=== PATIENT | female | born 1975 | race Caucasian/White ===

== ENCOUNTER 2016-08-01 11:12 | Inpatient (IN) | payer OTHER ==
[2016-08-01 13:09] VITALS: BMI 33.6
--- NOTE | 2016-08-01 13:36 | HP ---
CIWA Score - CIWA Score Nausea/Vomitin Muscle Tremors: 3 Anxiety: 3 Agitation: 3 Paroxysmal Sweats: 2 Orientation: 0-Oriented Tacttile Disturbances: 2-Mild Itch/Numbness/Burn Auditory Disturbances: 2-Mild Harshness/Frighten Visual Disturbances: 2-Mild Sensitivity Headache: 2-Mild CIWA-Ar Total Score: 22 Admission ROS [facility]HS - HPI Chief Complaint: i need help to stop drinking alcohol,xanax and heroin dependence,withdrawal symptom,last detox [facility] in 07/07seizure last 1 month sgo syncope history of pancreatitis bipolar disorder nicotine dependence low back pain arthritis fracture of right wrist in 2010 longest period of sobriety 2 years Allergies/Adverse Reactions: Allergies Allergy/AdvReac Type Severity Reaction Status Date / Time acetaminophen [From Tylenol] Allergy Severe Rash Verified 08/01/16 13:12 History of Present Illness: this 41 years old female with alcohol,xanax dependence,heroin dependence, seeking detox seeking help to stop using heroin and alcohol and xanax Exam Limitations: No Limitations - Ebola screening Have you traveled outside of the country in the last 21 days: No Have you had contact with anyone from an Ebola affected area: No Have you been sick,other than usual withdrawal symptoms: No Do you have a fever: No - Review of Systems Constitutional: Loss of Appetite, Malaise, Night Sweats, Changes in sleep, Weakness EENT: reports: Nose Congestion Respiratory: reports: No Symptoms reported Cardiac: reports: No Symptoms Reported GI: reports: Diarrhea, Nausea, Vomiting, Abdominal cramping : reports: No Symptoms Reported Musculoskeletal: reports: Back Pain, Muscle Pain Integumentary: reports: Dryness Neuro: reports: Headache, Tremors Endocrine: reports: No Symptoms Reported Hematology: reports: No Symptoms Reported Psychiatric: reports: Depressed Patient History - Patient Medical History Hx Anemia: No Hx Asthma: No Hx Chronic Obstructive Pulmonary Disease (COPD): No Hx Cancer: No Hx Cardiac Disorders: No Hx Congestive Heart Failure: No Hx Hypertension: No Hx Hypercholesterolemia: No Hx Pacemaker: No HX Cerebrovascular Accident: No Hx Seizures: Yes (last 1 month) Hx Dementia: No Hx Diabetes: No Hx Gastrointestinal Disorders: No Hx Liver Disease: No Hx Genitourinary Disorders: No Hx Sexually Transmitted Disorders: No Hx Renal Disease (ESRD): No Hx Thyroid Disease: No Hx Human Immunodeficiency Virus (HIV): No (last 03/05 negative) Hx Hepatitis C: No Hx Depression: Yes Hx Suicide Attempt: Yes ([place]) Hx Bipolar Disorder: No Hx Schizophrenia: No Other Medical History: no suicidal,no homicidal - Patient Surgical History Past Surgical History: No Hx Breast Surgery: Yes (breast augmentation in 1998) Other Surgical History: abscess of left neck in 1994,upper endosopy at age of 25 - PPD History Previous Implant?: Yes Documented Results: Negative w/o proof Implanted On Prior [facility] Admission?: No PPD to be Administered?: Yes - Reproductive History Patient is a Female of Child Bearing Age (11 -55 yrs old): Yes Patient : No - Smoking Cessation Smoking history: Current every day smoker Have you smoked in the past 12 months: Yes Aproximately how many cigarettes per day: 10 Cigars Per Day: 0 Hx Chewing Tobacco Use: No Initiated information on smoking cessation: Yes 'Breaking Loose' booklet given: 08/01/16 - Substance & Tx. History Hx Alcohol Use: Yes Hx Substance Use: Yes Substance Use Type: Alcohol, Heroin, Tranquilizers Hx Substance Use Treatment: Yes ([facility] 07/07) Family Disease History - Family Disease History Family History: Denies Admission Physical Exam S - Vital Signs Vital Signs: Vital Signs - 24 hr 08/01/16 13:07 Temperature 96.4 F L Pulse Rate 77 Respiratory 20 Rate Blood Pressure 144/93 - Physical General Appearance: Yes: Moderate Distress, Tremorous, Irritable, Sweating, Anxious HEENTM: Yes: Normocephalic, TIFF, Pharynx Normal Respiratory: Yes: Lungs Clear, Normal Breath Sounds, No Respiratory Distress Neck: Yes: Supple, Trachea in good position Breast: Yes: Breast Exam Deferred Cardiology: Yes: Within Normal Limits, Regular Rhythm, Regular Rate, S1, S2 Abdominal: Yes: Within Normal Limits, Normal Bowel Sounds, Non Tender, Flat, Soft Genitourinary: Yes: Within Normal Limits Back: Yes: Muscle Spasm Musculoskeletal: Yes: Back pain, Muscle Pain Extremities: Yes: Tremors 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, Fully Oriented, Alert, Motor Strength 5/5 Integumentary: Yes: Dry Lymphatic: Yes: Within Normal Limits - Diagnostic (1) Alcohol dependence with uncomplicated withdrawal Current Visit: Yes Status: Acute (2) Uncomplicated sedative, hypnotic or anxiolytic withdrawal Current Visit: Yes Status: Acute (3) Opioid dependence Current Visit: Yes Status: Acute (4) Bipolar disorder Current Visit: Yes Status: Acute (5) Depression Current Visit: Yes Status: Acute (6) Seizure Current Visit: Yes Status: Acute (7) Syncope Current Visit: Yes Status: Acute (8) History of pancreatitis Current Visit: Yes Status: Acute (9) Nicotine dependence Current Visit: Yes Status: Acute Cleared for Admission [facility] - Detox or Rehab [facility] Level of Care: Medically Managed Detox Regimen/Protocol: Valium (urine for drug screening is negative) [facility] Breath Alcohol Content Breath Alcohol Content: 0.045 Urine Pregancy Test - Result Urine Test Results: Negative- NO Line Present Urine Drug Screen - Results Drug Screen Negative: Yes
[2016-08-01] MEDS ORDERED: MAGNESIUM CITRATE 300 ML BOTTLE PO PRN (14:03)
[2016-08-01] MEDS ORDERED: guaiFENesin/D-METHORPHAN HB 10 ML UNIT-DOSE CUPS PO PRN (14:03)
[2016-08-01] MEDS ORDERED: IBUPROFEN 400 MG TABLET (FP) PO PRN (14:03)
[2016-08-01] MEDS ORDERED: MENTHOL/PHENOL 1 EACH UD MM PRN (14:03)
[2016-08-01] MEDS ORDERED: diphenhydrAMINE HCL 50 MG CAPSULE PO PRN (14:03)
[2016-08-01] MEDS ORDERED: MAGNESIUM HYDROX 2400MG/30ML ORAL SUSPENSION 30 ML CUP PO PRN (14:03)
[2016-08-01] MEDS ORDERED: P-EPHED 60MG/TRIPROLIDI 2.5MG TABLET PO PRN (14:03)
[2016-08-01] MEDS ORDERED: MAG HYDROX/AL HYDROX/SIMETH 30 ML UNIT-DOSE CUP PO PRN (14:03)
[2016-08-01] MEDS ORDERED: diazePAM 5 MG TABLET PO ONE (14:34)
[2016-08-01] MEDS: NICOTINE 21 MG/24 HOURS TOPICAL PATCH TD SCH (15:26)
[2016-08-01 21:45] LABS: URINE APPEARANCE CLEAR; URINE BILIRUBIN NEGATIVE (NEGATIVE); URINE BLOOD NEGATIVE (NEGATIVE); URINE COLOR YELLOW; URINE GLUCOSE (UA) NEGATIVE (NEGATIVE); URINE KETONE NEGATIVE (NEGATIVE); URINE NITRITE NEGATIVE (NEGATIVE); URINE PROTEIN NEGATIVE (NEGATIVE); URINE UROBILINOGEN NEGATIVE E.U./dl (0.2-1.0)
[2016-08-01 21:46] LABS: URINE LEUK ESTERASE TRACE (NEGATIVE)
[2016-08-01 21:48] LABS: URINE BACTERIA RARE /hpf (NONE SEEN); URINE HYALINE CAST 2 /lpf; URINE MUCUS MANY; URINE RBC 1 /hpf (0-3); URINE WBC 1 /hpf (3-5)
[2016-08-01] MEDS: diazePAM 5 MG TABLET PO SCH (22:41)
[2016-08-01] MEDS: THIAMINE HCL 100 MG TABLET (FP) PO SCH (22:41)
[2016-08-02] MEDS: diazePAM 5 MG TABLET PO SCH ×3 (06:45→22:41)
--- NOTE | 2016-08-02 08:52 | CONSULT ---
[facility] Psychiatric Consult - Data Date of interview: 08/02/16 Admission source: [facility] Identifying data: This is 41 years old female , chromic alcoholic, intoxicated with Alcohol and Opioids, Xanax and Nicotine, with history of psychiatric hospitalizations Substance Abuse History: - Smoking Cessation. Smoking history: Current every day smoker. Have you smoked in the past 12 months: Yes. Aproximately how many cigarettes per day: 10. Cigars Per Day: 0. Hx Chewing Tobacco Use: No. Initiated information on smoking cessation: Yes. 'Breaking Loose' booklet given : 08/01/16. - Substance & Tx. History. Hx Alcohol Use: Yes. Hx Substance Use : Yes. Substance Use Type: Alcohol, Heroin, Tranquilizers. Hx Substance Use Treatment: Yes ([facility] 07/07) Medical History: Chronic Pancreatitis, Seizure history, Syncope history Psychiatric History: Patient reports to carry Bipolar disorder with recent psychiatric admission at [facility] on [facility] for safety. Patient reports taking prior rhona admission: Buspar 5mg po bid. Trazodone 200mg pom qhs. Prozac 60mg poqd. Gabapentin 300mg po tid Physical/Sexual Abuse/Trauma History: Denies Additional Comment: Buspar 5mg po bid. Trazodone 200mg pom qhs. Prozac 60mg poqd. Gabapentin 300mg po tid Mental Status Exam - Mental Status Exam Alert and Oriented to: Person Cognitive Function: Fair Patient Appearance: Unkempt Mood: Sad Affect: Flat Patient Behavior: Sedated Speech Pattern: Delayed, Slurred Voice Loudness: Mildly Soft/Quiet Thought Process: Circumstantial Thought Disorder: Being Controlled Hallucinations: Denies Suicidal Ideation: Denies Homicidal Ideation: Denies Insight/Judgement: Fair Sleep: Difficulty falling asleep Appetite: Weight loss Muscle strength/Tone: Mild Hypotonicity Gait/Station: Shuffling Additional Comments: Buspar 5mg po bid. Trazodone 200mg pom qhs. Prozac 60mg poqd. Gabapentin 300mg po tid Psychiatric Findings - Problem List ([place] 1, 2,3) (1) Alcohol dependence with uncomplicated withdrawal Current Visit: Yes Status: Acute (2) Bipolar disorder Current Visit: Yes Status: Acute (3) Nicotine dependence Current Visit: Yes Status: Acute (4) Opioid dependence Current Visit: Yes Status: Acute (5) Uncomplicated sedative, hypnotic or anxiolytic withdrawal Current Visit: Yes Status: Acute - Initial Treatment Plan Initial Treatment Plan: Buspar 5mg po bid. Trazodone 200mg pom qhs. Prozac 60mg poqd. Gabapentin 300mg po tid
[2016-08-02 10:34] LABS: MCHC 32.8 g/dl (32.0-36.0); MEAN CELL VOLUME 88.3 fl (80-96); MEAN PLT VOLUME 9.8 fl (7.5-11.1); PLATELET COUNT 213 K/MM3 (134-434); RDW 15.4 % (11.6-15.6); WHITE BLOOD COUNT 4.2 K/mm3 (4.0-10.0)
[2016-08-02] MEDS: PRENATAL VITAMINS W/ FOLIC ACID TABLET (FP) PO SCH (10:51)
[2016-08-02] MEDS: diazePAM 5 MG TABLET PO PRN ×2 (10:51→18:17)
[2016-08-02] MEDS: FLUoxetine HCL 20 MG CAPSULE (FP) PO SCH (10:51)
[2016-08-02] MEDS: busPIRone HCL 5 MG TABLET PO SCH ×2 (10:52→22:41)
[2016-08-02] MEDS: NICOTINE 21 MG/24 HOURS TOPICAL PATCH TD SCH (10:52)
[2016-08-02 11:03] LABS: ALBUMIN 2.9 g/dl (3.4-5.0); ALK PHOS 67 U/L (45-117); ANION GAP 8 (8-16); BILIRUBIN,TOTAL 0.2 mg/dL (0.2-1.0); CALCIUM 8.3 mg/dL (8.5-10.1); CO2 28 mmol/L (21-32); CREATININE 0.5 mg/dL (0.55-1.02); GLUCOSE,RANDOM 102 mg/dL (74-106); SGOT/AST 45 U/L (15-37); SGPT/ALT 43 U/L (12-78); TOT PROT 6.4 g/dl (6.4-8.2)
[2016-08-02] MEDS ORDERED: POTASSIUM CHLORIDE TABS 20 MEQ TABLET.ER (FP) PO ONE (11:55)
--- NOTE | 2016-08-02 11:59 | PN ---
S CIWA - CIWA Score Nausea/Vomitin-Int. Nausea w/Dry Heave Muscle Tremors: 3 Anxiety: 3 Agitation: 3 Paroxysmal Sweats: 3 Orientation: 0-Oriented Tacttile Disturbances: 2-Mild Itch/Numbness/Burn Auditory Disturbances: 0-None Visual Disturbances: 0-None Headache: 0-None Present CIWA-Ar Total Score: 18 BHS Progress Note (SOAP) Subjective: interrupted sleep, sweats, shakes , nausea, decreased appetite , diarrhea Objective: 08/02/16 11:58 Vital Signs Temperature 97.6 F 08/02/16 10:05 Pulse Rate 82 08/02/16 10:05 Respiratory Rate 18 08/02/16 10:05 Blood Pressure 159/93 08/02/16 10:05 O2 Sat by Pulse Oximetry (%) Laboratory Tests 08/01/16 08/02/16 08/02/16 21:00 07:00 07:00 WBC 4.2 RBC 3.57 L Hgb 10.3 L Hct 31.5 L MCV 88.3 MCHC 32.8 RDW 15.4 Plt Count 213 MPV 9.8 Sodium 140 Potassium 3.4 L Chloride 104 Carbon Dioxide 28 Anion Gap 8 BUN 7 Creatinine 0.5 L Creat Clearance w eGFR > 60 Random Glucose 102 Calcium 8.3 L Total Bilirubin 0.2 AST 45 H ALT 43 Alkaline Phosphatase 67 Total Protein 6.4 Albumin 2.9 L Urine Color Yellow Urine Appearance Clear Urine pH 5.0 Ur Specific [place] 1.011 Urine Protein Negative Urine Glucose (UA) Negative Urine Ketones Negative Urine Blood Negative Urine Nitrite Negative Urine Bilirubin Negative Urine Urobilinogen Negative Ur Leukocyte Esterase Trace H Urine RBC 1 Urine WBC 1 Ur Epithelial Cells Few Urine Bacteria Rare Hyaline Casts 2 Urine Mucus Many pt aox3 in nad ambulating Assessment: 08/02/16 11:58 withdrawal sx's Plan: cont. detox increase fluids imodium prn
[2016-08-02 12:07] LABS: HIV 1 & 2 AB NEGATIVE; HIV 1 AGp24 NEGATIVE
[2016-08-02] MEDS: GABAPENTIN 300 MG CAPSULE (FP) PO SCH ×2 (15:08→22:42)
[2016-08-02] MEDS: traZODone HCL 100 MG TABLET (FP) PO SCH (22:41)
[2016-08-02] MEDS: THIAMINE HCL 100 MG TABLET (FP) PO SCH (22:43)
[2016-08-03] MEDS: GABAPENTIN 300 MG CAPSULE (FP) PO SCH ×3 (06:29→22:46)
[2016-08-03] MEDS: NICOTINE 21 MG/24 HOURS TOPICAL PATCH TD SCH (10:37)
[2016-08-03] MEDS: PRENATAL VITAMINS W/ FOLIC ACID TABLET (FP) PO SCH (10:37)
[2016-08-03] MEDS: diazePAM 5 MG TABLET PO SCH ×2 (10:37→22:46)
[2016-08-03] MEDS: FLUoxetine HCL 20 MG CAPSULE (FP) PO SCH (10:37)
[2016-08-03] MEDS: busPIRone HCL 5 MG TABLET PO SCH ×2 (10:38→22:46)
[2016-08-03] MEDS: hydrOXYzine PAMOATE 50 MG CAPSULE (FP) PO PRN (10:41)
[2016-08-03] MEDS: POTASSIUM CHLORIDE TABS 20 MEQ TABLET.ER (FP) PO SCH (10:43)
--- NOTE | 2016-08-03 11:46 | PN ---
[facility] CIWA - CIWA Score Nausea/Vomitin-No Nausea/No Vomiting Muscle Tremors: 4-Moderate,w/Arms Extend Anxiety: 3 Agitation: 4-Moderately Restless Paroxysmal Sweats: 3 Orientation: 0-Oriented Tacttile Disturbances: 0-None Auditory Disturbances: 0-None Visual Disturbances: 0-None Headache: 1-Very Mild CIWA-Ar Total Score: 15 BHS Progress Note (SOAP) Subjective: agitation anxiety sweats headache Objective: 08/03/16 11:46 Vital Signs Temperature 98.1 F 08/03/16 09:51 Pulse Rate 95 H 08/03/16 09:51 Respiratory Rate 18 08/03/16 09:51 Blood Pressure 120/70 08/03/16 09:51 O2 Sat by Pulse Oximetry (%) Laboratory Tests 08/01/16 08/01/16 08/01/16 07:00 07:00 21:00 WBC RBC Hgb Hct MCV MCHC RDW Plt Count MPV Sodium Potassium Chloride Carbon Dioxide Anion Gap BUN Creatinine Creat Clearance w eGFR Random Glucose Calcium Total Bilirubin AST ALT Alkaline Phosphatase Total Protein Albumin Urine Color Yellow Urine Appearance Clear Urine pH 5.0 Ur Specific [place] 1.011 Urine Protein Negative Urine Glucose (UA) Negative Urine Ketones Negative Urine Blood Negative Urine Nitrite Negative Urine Bilirubin Negative Urine Urobilinogen Negative Ur Leukocyte Esterase Trace H Urine RBC 1 Urine WBC 1 Ur Epithelial Cells Few Urine Bacteria Rare Hyaline Casts 2 Urine Mucus Many RPR Titer Hepatitis C Antibody >11.0 H HIV 1&2 Antibody Screen Negative HIV P24 Antigen Negative 08/02/16 08/02/16 08/02/16 07:00 07:00 07:00 WBC 4.2 RBC 3.57 L Hgb 10.3 L Hct 31.5 L MCV 88.3 MCHC 32.8 RDW 15.4 Plt Count 213 MPV 9.8 Sodium 140 Potassium 3.4 L Chloride 104 Carbon Dioxide 28 Anion Gap 8 BUN 7 Creatinine 0.5 L Creat Clearance w eGFR > 60 Random Glucose 102 Calcium 8.3 L Total Bilirubin 0.2 AST 45 H ALT 43 Alkaline Phosphatase 67 Total Protein 6.4 Albumin 2.9 L Urine Color Urine Appearance Urine pH Ur Specific [place] Urine Protein Urine Glucose (UA) Urine Ketones Urine Blood Urine Nitrite Urine Bilirubin Urine Urobilinogen Ur Leukocyte Esterase Urine RBC Urine WBC Ur Epithelial Cells Urine Bacteria Hyaline Casts Urine Mucus RPR Titer Nonreactive Hepatitis C Antibody HIV 1&2 Antibody Screen HIV P24 Antigen awake/alert ambulating no acute distress Assessment: 08/03/16 11:46 withdrawal sx Plan: continue detox increase fluids
--- NOTE | 2016-08-03 11:48 | PN ---
BHS Progress Note Note: pt states she has bee Hep C for years and will see PMD for follow up on treatment
[2016-08-03] MEDS: diazePAM 5 MG TABLET PO PRN ×2 (14:11→19:38)
--- NOTE | 2016-08-03 15:25 | EKG ---
Test Reason : Blood Pressure : / mmHG Vent. Rate : 081 BPM Atrial Rate : 081 BPM P-R Int : 180 ms QRS Dur : 086 ms QT Int : 400 ms P-R-T Axes : 062 052 042 degrees QTc Int : 464 ms NORMAL SINUS RHYTHM LOW VOLTAGE QRS BORDERLINE ECG NO PREVIOUS ECGS AVAILABLE Confirmed by ROCIO GARAY, ARMANDO ([id number]) on 08/03/2016 3:25:15 PM Referred By: Confirmed By:ARMANDO CHAN MD
[2016-08-03] MEDS: traZODone HCL 100 MG TABLET (FP) PO SCH (22:46)
[2016-08-03] MEDS: THIAMINE HCL 100 MG TABLET (FP) PO SCH (22:46)
[2016-08-04] MEDS: GABAPENTIN 300 MG CAPSULE (FP) PO SCH ×3 (07:50→22:47)
[2016-08-04] MEDS: diazePAM 5 MG TABLET PO PRN ×2 (07:52→13:26)
--- NOTE | 2016-08-04 09:57 | PN ---
S Progress Note (SOAP) Subjective: ALERT,IRRITABLE,ANXIOUS,INTERRUPTED SLEEP Objective: 08/04/16 09:56 Vital Signs Temperature 97.7 F 08/04/16 06:00 Pulse Rate 74 08/04/16 06:00 Respiratory Rate 16 08/04/16 06:00 Blood Pressure 108/59 08/04/16 06:00 O2 Sat by Pulse Oximetry (%) Assessment: 08/04/16 09:56 WITHDRWAL SYMPTOM Plan: CONTINUE DETOX
[2016-08-04] MEDS: PRENATAL VITAMINS W/ FOLIC ACID TABLET (FP) PO SCH (10:42)
[2016-08-04] MEDS: FLUoxetine HCL 20 MG CAPSULE (FP) PO SCH (10:42)
[2016-08-04] MEDS: NICOTINE 21 MG/24 HOURS TOPICAL PATCH TD SCH (10:43)
[2016-08-04] MEDS: POTASSIUM CHLORIDE TABS 20 MEQ TABLET.ER (FP) PO SCH (10:43)
[2016-08-04] MEDS: busPIRone HCL 5 MG TABLET PO SCH ×2 (10:43→22:46)
[2016-08-04] MEDS: diazePAM 5 MG TABLET PO SCH ×2 (10:43→22:46)
[2016-08-04] MEDS: hydrOXYzine PAMOATE 50 MG CAPSULE (FP) PO PRN ×2 (10:45→14:39)
[2016-08-04] MEDS: traZODone HCL 100 MG TABLET (FP) PO SCH (22:46)
[2016-08-04] MEDS: LOPERAMIDE HCL 2 MG CAPSULE PO PRN (22:46)
[2016-08-04] MEDS: THIAMINE HCL 100 MG TABLET (FP) PO SCH (22:47)
[2016-08-05] MEDS: GABAPENTIN 300 MG CAPSULE (FP) PO SCH ×3 (07:00→22:54)
[2016-08-05] MEDS ORDERED: diazePAM 5 MG TABLET PO SCH (10:00)
[2016-08-05] MEDS: PRENATAL VITAMINS W/ FOLIC ACID TABLET (FP) PO SCH (11:24)
[2016-08-05] MEDS: NICOTINE 21 MG/24 HOURS TOPICAL PATCH TD SCH (11:24)
[2016-08-05] MEDS: FLUoxetine HCL 20 MG CAPSULE (FP) PO SCH (11:24)
[2016-08-05] MEDS: LOPERAMIDE HCL 2 MG CAPSULE PO PRN ×2 (11:25→22:55)
[2016-08-05] MEDS: busPIRone HCL 5 MG TABLET PO SCH ×2 (11:25→22:54)
--- NOTE | 2016-08-05 12:03 | PN ---
S Progress Note (SOAP) Subjective: ALERT,IRRITABLE,NAUSEA,VOMITING,LOOSE BOWEL MOVEMENT Objective: 08/05/16 12:02 Vital Signs Temperature 98.8 F 08/05/16 10:34 Pulse Rate 124 H 08/05/16 10:34 Respiratory Rate 20 08/05/16 10:34 Blood Pressure 131/80 08/05/16 10:34 O2 Sat by Pulse Oximetry (%) Assessment: 08/05/16 12:02 WITHDRAWAL SYMPTOM Plan: CONTINUE DETOX
[2016-08-05] MEDS: ONDANSETRON *ODT* 4 MG TABLET SL PRN (12:13)
[2016-08-05] MEDS: THIAMINE HCL 100 MG TABLET (FP) PO SCH (22:54)
[2016-08-05] MEDS: traZODone HCL 100 MG TABLET (FP) PO SCH (22:54)
[2016-08-06] MEDS: GABAPENTIN 300 MG CAPSULE (FP) PO SCH (05:40)
[2016-08-06 07:28] VITALS: BP 107/72; PULSE 95; TEMP 97.9
--- NOTE | 2016-08-06 09:58 | PN ---
S Progress Note (SOAP) Subjective: ALERT,NO COMPLAINT Objective: 08/06/16 09:56 Vital Signs Temperature 97.9 F 08/06/16 07:27 Pulse Rate 95 H 08/06/16 07:27 Respiratory Rate 20 08/06/16 07:27 Blood Pressure 107/72 08/06/16 07:27 O2 Sat by Pulse Oximetry (%) Assessment: 08/06/16 09:56 DETOX COMPLETED,NO WITHDRAWAL SYMPTOM Plan: DISCHARGE TODAY,FOLLOW UP WITH AFTER CARE PROGRAM ARRANGEMENT
--- NOTE | 2016-08-06 09:59 | DS ---
[facility] Detox Discharge Summary Admission Date: 08/01/16 Discharge Date: 08/06/16 - History Present History: Alcohol Dependence, Opioid Dependence, Sedative Dependence Additional Comments: FOLLOW UP WITH AFTER CARE PROGRAM ARRANGEMENT Pertinent Past History: PANCREATITIS - Physical Exam Results Vital Signs: Vital Signs Temperature 97.9 F 08/06/16 07:27 Pulse Rate 95 H 08/06/16 07:27 Respiratory Rate 20 08/06/16 07:27 Blood Pressure 107/72 08/06/16 07:27 O2 Sat by Pulse Oximetry (%) Pertinent Admission Physical Exam Findings: WITHDRAWAL SYMPTOM - Treatment Hospital Course: Detox Protocol Followed, Detoxed Safely, Responded well, Discharged Condition Good, Rehab Referral Accepted Patient has Accepted a Rehab Referral to: [facility] - Medication Discharge Medications: Ambulatory Orders Buspirone HCl [Buspar -] 2.5 mg PO BID 08/01/16 Fluoxetine HCl [Prozac -] 20 mg PO DAILY 08/01/16 Gabapentin [Neurontin -] 300 mg PO Q8H 08/01/16 Trazodone HCl [Desyrel -] 100 mg PO HS 08/01/16 Buspirone HCl [Buspar -] 5 mg PO BID #60 tablet 08/02/16 Fluoxetine HCl [Prozac -] 30 mg PO DAILY #90 tablet 08/02/16 Fluoxetine HCl [Prozac -] 60 mg PO DAILY #30 08/02/16 Gabapentin [Gralise] 300 mg PO TID #90 tab.er.24h 08/02/16 Gabapentin [Neurontin -] 300 mg PO TID #90 08/02/16 Trazodone HCl [Desyrel -] 200 mg PO HS #30 tablet 08/02/16 - Diagnosis (1) Alcohol dependence with uncomplicated withdrawal Current Visit: Yes Status: Acute (2) Uncomplicated sedative, hypnotic or anxiolytic withdrawal Current Visit: Yes Status: Acute (3) Opioid dependence Current Visit: Yes Status: Acute (4) Bipolar disorder Current Visit: Yes Status: Acute (5) Depression Current Visit: Yes Status: Acute (6) Seizure Current Visit: Yes Status: Acute (7) Syncope Current Visit: Yes Status: Acute (8) History of pancreatitis Current Visit: Yes Status: Acute (9) Nicotine dependence Current Visit: Yes Status: Acute - AMA Did Patient Leave Against Medical Advice: No
[2016-08-06] MEDS: FLUoxetine HCL 20 MG CAPSULE (FP) PO SCH (10:05)
[2016-08-06] MEDS: busPIRone HCL 5 MG TABLET PO SCH (10:06)
[2016-08-06] MEDS: PRENATAL VITAMINS W/ FOLIC ACID TABLET (FP) PO SCH (10:06)
[2016-08-06] MEDS: NICOTINE 21 MG/24 HOURS TOPICAL PATCH TD SCH (10:06)
[2016-08-06] MEDS: LOPERAMIDE HCL 2 MG CAPSULE PO PRN (10:07)
[2016-08-06] MEDS: ONDANSETRON *ODT* 4 MG TABLET SL PRN (10:07)
[2016-08-07 14:12] LABS: HCV LOG 10 6.334 (.)
== END 2016-08-06 10:33 | disposition home or self-care (01) | DRG 773 ==
LOC: YASAS 11:12 → Y6N 14:21
PROVIDERS: ADMIT Internal Medicine Addiction Medicine; ATTEND Internal Medicine Addiction Medicine
PROC: HZ2ZZZZ Detoxification Services for Substance Abuse Treatment (ICD-10-PCS; principal; 2016-08-01)
DX: F11.23 Opioid dependence with withdrawal (principal); F13.230 Sedative, hypnotic or anxiolytic dependence with withdrawal, uncomplicated; F10.230 Alcohol dependence with withdrawal, uncomplicated; F17.210 Nicotine dependence, cigarettes, uncomplicated; F31.9 Bipolar disorder, unspecified; F32.9 Major depressive disorder, single episode, unspecified; G40.909 Epilepsy, unspecified, not intractable, without status epilepticus; M54.5 Low back pain; Z87.19 Personal history of other diseases of the digestive system; Z91.5 Personal history of self-harm
CPT/HCPCS: 36415; 80053; 81003; 81015; 85027; 86593; 87389; 87522; 93005; 93010